=== PATIENT | female | born 1995 | race Caucasian/White ===

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

== ENCOUNTER 2018-04-25 11:58 | Emergency (ER) | payer OTHER ==
[~2018-04-25] VITALS: Ht 152.4 cm; Wt 49.3 kg
[2018-04-25 12:08] VITALS: BP 111/57; PULSE 90; RESP 19; Ht 152.4 cm; Wt 49.3 kg
[2018-04-25] MEDS ORDERED: CEPH-443 PO (16:25)
--- NOTE | 2018-04-25 18:14 | ERD ---
ER Documentation Chief Complaint Chief Complaint VAGINAL BLEEDING LMP 02/10/18 HPI 23-year-old female patient with no significant past medical history presents to ED complaining of vaginal bleeding that started earlier today, is currently . Patient reports that she is a . Patient states that she has had some vaginal spotting. Denies any fever, dysuria, urgency, frequency, hematuria, abdominal pain, nausea, vomiting, diarrhea. ROS All systems reviewed and are negative except as per history of present illness. Medications Home Meds Active Scripts Cephalexin* (Keflex*) 500 Mg Capsule, 500 MG PO QID for 7 Days, CAP Prov:GEMMA DE LA CRUZ PA-C 04/25/18 Allergies Allergies: Coded Allergies: No Known Allergy (Unverified , 04/19/16) PMhx/Soc Medical and Surgical Hx: pt denies Medical Hx, pt denies Surgical Hx Hx Alcohol Use: No Hx Substance Use: No Hx Tobacco Use: No Smoking Status: Never smoker FmHx Family History: No diabetes, No coronary disease Physical Exam Vitals Vital Signs Date Temp Pulse Resp B/P (MAP) Pulse Ox O2 O2 Flow FiO2 Time Delivery Rate 04/25/18 98.5 90 19 111/57 97 12:08 (75) Physical Exam Const: [id number], well-nourished. In no acute distress. Head: Atraumatic, normocephalic Eyes: Normal Conjunctiva without injection. No purulent discharge. ENT: Normal external ear, nose. Moist oropharynx without tonsillar exudates. Non-erythematous pharynx. Uvula midline. No drooling. No trismus. Neck: No cervical midline tenderness. Full range of motion. No meningismus. No cervical lymphadenopathy. No JVD. Resp: Clear to auscultation bilaterally. No wheezing, rhonchi, rales, or crackles. No accessory muscle use. No retractions. Cardio: Regular rate and rhythm. No murmurs, rubs or gallops. Abd: Soft, nontender, non distended. Normal bowel sounds. No palpable masses. No rebound tenderness. No guarding. Negative McBurney's point. Negative psoas sign. Negative obturator sign. Skin: No petechiae or rashes Back: No midline tenderness. No CVA tenderness. Ext: No cyanosis, or edema. Neur: Awake and alert. Normal gait. Normal coordination. Psych: Normal Mood and Affect Result Diagram: 04/25/18 1435 Results 24 hrs Laboratory Tests Test 04/25/18 14:35 04/25/18 14:45 White Blood Count 9.4 10^3/ul Red Blood Count 3.99 10^6/ul Hemoglobin 12.0 g/dl Hematocrit 35.5 % Mean Corpuscular Volume 89.0 fl Mean Corpuscular Hemoglobin 30.1 pg Mean Corpuscular Hemoglobin Concent 33.8 g/dl Red Cell Distribution Width 13.2 % Platelet Count 197 10^3/UL Mean Platelet Volume 10.6 fl Immature Granulocytes % 0.300 % Neutrophils % 67.8 % Lymphocytes % 22.9 % Monocytes % 5.5 % Eosinophils % 2.7 % Basophils % 0.8 % Nucleated Red Blood Cells % 0.0 /100WBC Immature Granulocytes # 0.030 10^3/ul Neutrophils # 6.4 10^3/ul Lymphocytes # 2.2 10^3/ul Monocytes # 0.5 10^3/ul Eosinophils # 0.3 10^3/ul Basophils # 0.1 10^3/ul Nucleated Red Blood Cells # 0.0 10^3/ul Beta HCG, Quantitative 89269.0 mIU/ml Urine Color YELLOW Urine Clarity SLIGHTLY CLOUDY Urine pH 7.0 Urine Specific Snyder 1.015 Urine Ketones NEGATIVE mg/dL Urine Nitrite NEGATIVE mg/dL Urine Bilirubin NEGATIVE mg/dL Urine Urobilinogen NEGATIVE mg/dL Urine Leukocyte Esterase NEGATIVE Cindi/ul Urine Microscopic RBC 1 /HPF Urine Microscopic WBC 1 /HPF Urine Squamous Epithelial Cells MODERATE /HPF Urine Bacteria FEW /HPF Urine Hemoglobin NEGATIVE mg/dL Urine Glucose NEGATIVE mg/dL Urine Total Protein NEGATIVE mg/dl Procedures/MDM 23-year-old female patient with no significant past medical history presents to ED complaining of vaginal bleeding that started earlier today. Patient is afebrile and nontoxic-appearing. An ultrasound, beta-hCG, CBC, type and RH, UA was ordered to evaluate patient. CBC: No evidence of severe infection or anemia Urine: No elevation in nitrites, leukocyte esterase, hematuria. Bacteria noted in urine. Patient will be treated for urinary tract infection to avoid any labor. Rh: A positive No indication for Rhogam at this time. beta Hc IMPRESSION: Single live intrauterine with an estimated gestational age of 11 weeks and 1 day, based on ultrasound measurements. Patient's bleeding symptoms have stabilized while in the department. 11 weeks, 1 day, IUP noted. Low suspicion for symptomatic anemia, ectopic , sepsis, PID, appendicitis, ovarian torsion, tubo-ovarian abscess, surgical abdomen, or other emergent conditions. Patient was educated that there is a risk for threatened . Patient will be treated for urinary tract infection. Patient to follow up with [facility] TECHNICIAN in 2 days for further evaluation and treatment. Patient is to return sooner to the ED for any worsening symptoms. Patient's questions were answered. Patient understood and agreed with discharge plan. Departure Diagnosis: Primary Impression: Vaginal bleeding in patient at less than 20 weeks ges... Condition: Stable Patient Instructions: Urinary Tract Infections in Women, Bleeding During Early Referrals: [facility] (PCP) [facility] YOU HAVE RECEIVED A MEDICAL SCREENING EXAM AND THE RESULTS INDICATE THAT YOU DO NOT HAVE A CONDITION THAT REQUIRES URGENT TREATMENT IN THE EMERGENCY DEPARTMENT. FURTHER EVALUATION AND TREATMENT OF YOUR CONDITION CAN WAIT UNTIL YOU ARE SEEN IN YOUR DOCTORS OFFICE WITHIN THE NEXT 1-2 DAYS. IT IS YOUR RESPONSIBILITY TO MAKE AN APPOINTMENT FOR FOLOW-UP CARE. IF YOU HAVE A PRIMARY DOCTOR --you should call your primary doctor and schedule an appointment IF YOU DO NOT HAVE A PRIMARY DOCTOR YOU CAN CALL OUR PHYSICIAN REFERRAL HOTLINE AT IF YOU CAN NOT AFFORD TO SEE A PHYSICIAN YOU CAN CHOSE FROM THE FOLLOWING [facility] CLINICS [facility] [address] [facility]. [facility] [address] [facility]. [facility] [address] [facility]. [facility] [address] [facility] [address] [facility]. [facility]. [address] [facility]. [facility] YOU HAVE RECEIVED A MEDICAL SCREENING EXAM AND THE RESULTS INDICATE THAT YOU DO NOT HAVE A CONDITION THAT REQUIRES URGENT TREATMENT IN THE EMERGENCY DEPARTMENT. FURTHER EVALUATION AND TREATMENT OF YOUR CONDITION CAN WAIT UNTIL YOU ARE SEEN IN YOUR DOCTORS OFFICE WITHIN THE NEXT 1-2 DAYS. IT IS YOUR RESPONSIBILITY TO MAKE AN APPOINTMENT FOR FOLOW-UP CARE. IF YOU HAVE A PRIMARY DOCTOR --you should call your primary doctor and schedule and appointment IF YOU DO NOT HAVE A PRIMARY DOCTOR YOU CAN CALL OUR PHYSICIAN REFERRAL HOTLINE AT . IF YOU CAN NOT AFFORD TO SEE A PHYSICIAN YOU CAN CHOSE FROM THE FOLLOWING FORMER[facility], [facility] INSTITUTIONS: [facility] [address] [place] [address] [facility] [address] [place] [address] [facility] [address] [place] [address] [facility]/SPECIALTIES [facility] TECHN[place] [address] [facility] [address] [place], [place] [id number] OFFICE FAX , [facility] [address] [place], [place] [id number] [place] [place] [address] [place] [address] [address] [facility] [address] [facility], [address], [facility] [id number] [address] [address] [place] [address] [facility] [address] [place] [address] [address] [facility] [id number] - [place] [address], [facility] [id number] [address]INA [address] [address] [facility]. [address], [facility] [address] [address] [address] [place], [place] [phone] [facility] Hours: 8:00 am - 5:00 pm Additional Instructions: Call your primary care doctor TOMORROW for an appointment during the next 2-3 days.See the doctor sooner or return here if your condition worsens before your appointment time. GEMMA DE LA CRUZ PA-C Apr 25, 2018 18:14
== END 2018-04-25 16:34 | disposition home or self-care (01) ==
LOC: FTE 11:58
DX: O20.9 Hemorrhage in early pregnancy, unspecified (principal); Z3A.11 11 weeks gestation of pregnancy
CPT/HCPCS: 36415; 76801; 81001; 84702; 85025; 86900; 86901; Z7502; 81003

== ENCOUNTER 2018-10-23 08:35 | Inpatient (IN) | payer OTHER ==
[~2018-10-23] VITALS: Ht 154.9 cm; Wt 57.0 kg
[~2018-10-23 08:35] MED LIST: CEPH-443 PO; IRON1TAB78 PO; PREN1TAB71 PO; URSO300C3 PO
[2018-10-23 08:43] VITALS: BP 110/62; Ht 154.9 cm; Wt 57.0 kg
[2018-10-23] MEDS ORDERED: LACTATED RINGER'S 1,000 ML IV PRN (09:24)
[2018-10-23] MEDS ORDERED: AMPICILLIN 2 GM/NS (PMX) 100 ML IV ONE (09:30)
[2018-10-23] MEDS ORDERED: CARBOPROST 250 MCG INJ IM PRN ×2 (09:30→20:00)
[2018-10-23] MEDS ORDERED: BUTORPHANOL 2 MG INJ IV PRN (09:30)
[2018-10-23] MEDS ORDERED: METHYLERGONOVINE 0.2 MG INJ IM PRN (09:30)
[2018-10-23] MEDS ORDERED: MISOPROSTOL 200 MCG TAB PR PRN ×2 (09:30→20:00)
[2018-10-23] MEDS ORDERED: LIDOCAINE 1% (MPF) 30 ML INJ INJ PRN (09:30)
[2018-10-23] MEDS ORDERED: OXYTOCIN 30 UNITS/LR 500 ML IV PRN ×2 (09:30→20:00)
[2018-10-23] MEDS ORDERED: OXYTOCIN 30 UNITS/LR 500 ML IV SCH ×2 (09:30)
[2018-10-23] MEDS: LACTATED RINGER'S 1,000 ML IV SCH ×2 (10:21→14:52)
[2018-10-23] MEDS ORDERED: FENTAnyl 2MCG/ML-ROPIV 0.2% 100 ML ONE (12:22)
[2018-10-23] MEDS ORDERED: DIPHENHYDRAMINE 50 MG INJ IV PRN ×2 (12:30→20:00)
[2018-10-23] MEDS ORDERED: NALOXONE (0.4 MG/ML) INJ IV PRN (12:30)
[2018-10-23] MEDS ORDERED: FENTAnyl 2MCG/ML-ROPIV 0.2% 100 ML BAG EPI SCH (12:30)
[2018-10-23] MEDS ORDERED: ONDANSETRON 4 MG INJ IV PRN ×2 (12:30→20:00)
[2018-10-23] MEDS: URSODIOL 300 MG CAP PO SCH ×2 (14:07→23:47)
[2018-10-23] MEDS: AMPICILLIN 1 GM/NS (PMX) 50 ML IV SCH ×3 (16:35→23:16)
[2018-10-23] MEDS ORDERED: LACTATED RINGER'S 1,000 ML IV* SCH (19:33)
[2018-10-23] MEDS ORDERED: WITCH HAZEL/GLYCERIN PAD PR PRN (20:00)
[2018-10-23] MEDS ORDERED: MAGNESIUM HYDROXIDE 30ML CUP PO PRN (20:00)
[2018-10-23] MEDS ORDERED: DIBUCAINE 1% 30 GM OINT TOP PRN (20:00)
[2018-10-23] MEDS ORDERED: HYDROCODONE/APAP (5/325) TAB PO PRN ×2 (20:00)
[2018-10-23] MEDS ORDERED: ONDANSETRON 4 MG TAB PO PRN (20:00)
[2018-10-23] MEDS ORDERED: SENNA/DOCUSATE NA (8.6MG/50MG) TAB PO PRN (20:00)
[2018-10-23] MEDS ORDERED: DIPHENHYDRAMINE 25 MG CAP PO PRN (20:00)
[2018-10-23] MEDS ORDERED: NA PHOSPHATE/BIPHOS 133 ML ENEMA PR PRN (20:00)
[2018-10-23] MEDS ORDERED: BENZOCAINE 20% 56 ML SPRAY TOP PRN (20:00)
[2018-10-23] MEDS ORDERED: LANOLIN HPA 1 PKT TOP PRN (20:00)
[2018-10-23] MEDS: OXYTOCIN 30 UNITS/LR 500 ML IV SCH (20:22)
[2018-10-23] MEDS ORDERED: MINERAL OIL LIGHT 10 ML VIAL TOP ONE (21:00)
[2018-10-23 22:50] VITALS: BP 103/58; PULSE 60; RESP 18
[2018-10-23 23:30] VITALS: BP 102/55; PULSE 60; RESP 18
[2018-10-23] MEDS: SENNA/DOCUSATE NA (8.6MG/50MG) TAB PO SCH (23:45)
[2018-10-23] MEDS: IBUPROFEN 600 MG TAB PO SCH (23:46)
[2018-10-24] MEDS: OXYTOCIN 30 UNITS/LR 500 ML IV SCH (00:51)
[2018-10-24] MEDS: AMPICILLIN 1 GM/NS (PMX) 50 ML IV SCH (01:30)
[2018-10-24 04:25] VITALS: BP 108/60; PULSE 61
[2018-10-24] MEDS: IBUPROFEN 600 MG TAB PO SCH ×3 (06:00→18:00)
[2018-10-24 08:25] VITALS: BP 103/56; PULSE 83; RESP 16
[2018-10-24] MEDS: URSODIOL 300 MG CAP PO SCH ×3 (10:09→21:58)
[2018-10-24] MEDS: SENNA/DOCUSATE NA (8.6MG/50MG) TAB PO SCH ×2 (10:09→21:58)
[2018-10-24 16:30] VITALS: BP 108/64; PULSE 75; RESP 16
[2018-10-24 20:00] VITALS: BP 136/40; PULSE 136; RESP 40
[2018-10-25 04:10] VITALS: BP 92/51; PULSE 58; RESP 20
[2018-10-25] MEDS: IBUPROFEN 600 MG TAB PO SCH ×3 (05:54→12:00)
[2018-10-25 08:20] VITALS: BP 100/50; PULSE 57; RESP 18
[2018-10-25] MEDS ORDERED: DIPHTH/TET/ACEL PERTUSS (ADULT) 0.5 ML VIAL IM* ONE (09:00)
[2018-10-25] MEDS ORDERED: VARICELLA VACCINE LIVE/PF 1,350 UNIT/0.5 ML ML SC* ONE (09:00)
[2018-10-25] MEDS ORDERED: MEASLES,MUMPS,RUBELLA VACCINE INJ SC* ONE (09:00)
[2018-10-25] MEDS: SENNA/DOCUSATE NA (8.6MG/50MG) TAB PO SCH (11:09)
[2018-10-25] MEDS: URSODIOL 300 MG CAP PO SCH (11:09)
== END 2018-10-25 14:00 | disposition home or self-care (01) | DRG 807 ==
LOC: OBT 08:35 → L-D 08:36 → OBT 09:20 → L-D 09:25 → MS1 22:46
PROVIDERS: ADMIT Specialist; ATTEND Specialist
PROC: 10E0XZZ Delivery of Products of Conception, External Approach (ICD-10-PCS; principal; 2018-10-23)
PROC: 0W8NXZZ Division of Female Perineum, External Approach (ICD-10-PCS; 2018-10-23)
DX: O60.13X0 Preterm labor second trimester with preterm delivery third trimester, not applicable or unspecified (principal); Z37.0 Single live birth; O99.214 Obesity complicating childbirth; Z3A.36 36 weeks gestation of pregnancy
CPT/HCPCS: 62322; 85025; 85610; 85730; 86592; 86850; 86900; 86901; 87340; 90715; 90716; 99464; G0463; J0290; J2590; J3010; J7120